=== PATIENT | male | born 1990 | race Caucasian/White ===

== ENCOUNTER 2021-03-11 20:45 | Emergency (ER) | payer OTHER ==
[~2021-03-11] VITALS: Ht 190.5 cm; Wt 75.0 kg
[2021-03-11] MEDS ORDERED: IBUP-2029 MT (23:51)
[2021-03-12] MEDS ORDERED: KETOROLAC 60MG/2ML VIAL IM ONE
[2021-03-12 00:30] VITALS: BP 105/67
== END 2021-03-12 00:30 | disposition home or self-care (01) ==
LOC: ER 20:45
DX: S16.1XXA Strain of muscle, fascia and tendon at neck level, initial encounter (principal); S43.401A Unspecified sprain of right shoulder joint, initial encounter; F12.10 Cannabis abuse, uncomplicated; Z88.1 Allergy status to other antibiotic agents; X58.XXXA Exposure to other specified factors, initial encounter; Y93.89 Activity, other specified; Y92.89 Other specified places as the place of occurrence of the external cause; Y99.8 Other external cause status
CPT/HCPCS: 72125; 96372; 99284; J1885

== ENCOUNTER 2025-02-06 10:09 | Emergency (ER) | payer OTHER ==
[~2025-02-06] VITALS: Ht 190.5 cm; Wt 83.9 kg
[~2025-02-06 10:09] MED LIST: IBUP-2029 MT; MUPI15CR11 TP
[2025-02-06 10:20] VITALS: O2SAT 100
[2025-02-06] MEDS: BACITRACIN 14GM TUBE TOP ONE (11:17)
[2025-02-06] MEDS ORDERED: BACITRACIN 14GM TUBE TOP NR (11:30)
[2025-02-06] MEDS: BACITRACIN ZINC OINT UDPKT TOP ONE (11:30)
[2025-02-06 11:42] VITALS: BP 132/77; PULSE 66; RESP 18; TEMP 36.9; O2SAT 98
== END 2025-02-06 11:35 | disposition home or self-care (01) ==
LOC: ER 10:09
DX: S92.403A Displaced unspecified fracture of unspecified great toe, initial encounter for closed fracture (principal); F12.10 Cannabis abuse, uncomplicated; Z88.1 Allergy status to other antibiotic agents; W23.1XXA Caught, crushed, jammed, or pinched between stationary objects, initial encounter; Y93.89 Activity, other specified; Y92.89 Other specified places as the place of occurrence of the external cause; Y99.8 Other external cause status
CPT/HCPCS: 73660; 99283; Z7610

== ENCOUNTER 2025-10-21 01:56 | Emergency (ER) | payer MEDICAID, OTHER ==
[~2025-10-21] VITALS: Ht 182.9 cm; Wt 86.0 kg
[~2025-10-21 01:56] MED LIST changes: +IBUP-1455 MT; -IBUP-2029 MT
[2025-10-21 01:58] VITALS: O2SAT 99
[2025-10-21 03:15] LABS: BASOPHILS % 0.8 % (0.0-2.0); CLARITY URINE CLEAR (CLEAR); COLOR URINE DARK YELLOW (YELLOW); EOSINOPHILS % 3.3 % (0.0-5.0); GLUCOSE URINE NEGATIVE (NEGATIVE); HEMATOCRIT. 44.9 % (42.0-52.0); HEMOGLOBIN. 14.7 g/dL (14.0-18.0); KETONES URINE NEGATIVE (NEGATIVE); LEUKOCYTE ESTERASE URINE NEGATIVE (NEGATIVE); LYMPHOCYTES % 37.5 % (20.0-50.0); MEAN PLATELET VOLUME 8.7 fl (7.4-10.4); MONOCYTES % 12.1 % (2.0-8.0); NEUTROPHILS % 46.3 % (40.0-76.0); NITRITE URINE NEGATIVE (NEGATIVE); OCCULT BLOOD URINE NEGATIVE (NEGATIVE); PH URINE 6.0 (4.5-8.0); PLATELET 346 x1000/uL (130-400); PROTEIN URINE NEGATIVE (NEGATIVE); RED BLOOD CELL COUNT 4.96 mill/uL (4.7-6.1); RED CELL DISTRIBUTION WIDTH 13.9 % (11.6-14.6); SPECIFIC GRAVITY URINE 1.008 (1.005-1.030); UROBILINOGEN URINE 0.2 E.U./dL (0.2-1.0)
[2025-10-21 03:19] LABS: CREATININE 1.0 mg/dL (0.6-1.3); ETHANOL BLOOD 61 mg/dL (<10); UREA NITROGEN BLOOD 9 mg/dL (9-23)
[2025-10-21 03:20] LABS: PROTEIN TOTAL 7.0 g/dL (6.0-8.3)
[2025-10-21 03:21] LABS: ASPARTATE AMINOTRANSFERASE 27 IU/L (<34); BILIRUBIN DIRECT 0.1 mg/dL (<=3.0); BILIRUBIN TOTAL 0.4 mg/dL (0.1-1.0)
[2025-10-21 03:54] LABS: *AMPHETAMINES SCREEN URINE PRESUMPTIVE POSITIVE (NEGATIVE)
[2025-10-21 03:55] LABS: *BARBITURATES SCREEN URINE NEGATIVE (NEGATIVE); *BENZODIAZEPINES SCREEN URINE NEGATIVE (NEGATIVE); *COCAINE SCREEN URINE NEGATIVE (NEGATIVE); CANNABINOID URINE SCREEN NEGATIVE (NEGATIVE); ECSTASY MDMA SCREEN URINE NEGATIVE (NEGATIVE); METHADONE URINE SCREEN NEGATIVE (NEGATIVE); OPIATES URINE SCREEN NEGATIVE (NEGATIVE); PHENCYCLIDINE URINE SCREEN NEGATIVE (NEGATIVE)
[2025-10-21] MEDS: LORAZEPAM 2MG/ML UD SYRINGE IM NR (04:05)
[2025-10-21] MEDS: HALOPERIDOL LACTATE 5MG/ML VIAL IM ONE (04:05)
[2025-10-21] MEDS: DIPHENHYDRAMINE 50MG/ML VIAL IM ONE (04:06)
[2025-10-21 13:54] VITALS: BP 121/62; PULSE 71; RESP 18; TEMP 36.7; O2SAT 99
== END 2025-10-21 13:57 | disposition home or self-care (01) ==
LOC: ER 01:56
DX: R45.851 Suicidal ideations (principal); F19.10 Other psychoactive substance abuse, uncomplicated; F22 Delusional disorders; F41.9 Anxiety disorder, unspecified; Z88.1 Allergy status to other antibiotic agents; Z20.822 Contact with and (suspected) exposure to COVID-19; Z79.899 Other long term (current) drug therapy
CPT/HCPCS: 80076; 80305; 80048; 81003; 80307; 80329; 80320; 85025; 36415; 96372; 99285; 87426; J1200; J1630; J2060; G0480